=== PATIENT | female | born 1990 | race Two or more races ===

== ENCOUNTER 2024-05-22 09:12 | Day surgery (SDC) | payer OTHER ==
[2024-05-22] MEDS ORDERED: Acetaminophen 500 MG TAB ONE (09:32)
[2024-05-22] MEDS: Acetaminophen 500 MG TAB PO SCH (09:34)
[2024-05-22 09:49] VITALS: TEMP 98.1
[2024-05-22] MEDS: Iron Sucrose Complex 500 MG in Sodium Chloride 0.9% 250 ML 250 ML IVPB SCH (09:55)
[2024-05-23 08:47] VITALS: BP 100/61
== END 2024-05-22 15:42 | disposition home or self-care (01) ==
LOC: ONC/OP 09:12
PROVIDERS: ATTEND Family Medicine
DX: O99.012 Anemia complicating pregnancy, second trimester (principal); Z3A.00 Weeks of gestation of pregnancy not specified
CPT/HCPCS: 96365; 96366; J1756; J7050